=== PATIENT | male | born 1935 | race Caucasian/White ===

== ENCOUNTER 2017-01-02 10:11 | Emergency (ER) | payer MEDICARE, OTHER ==
[2017-01-02 11:34] VITALS: BP 147/65
--- NOTE | 2017-01-02 13:25 | UC ---
Skin Complaint HPI - HPI Summary HPI Summary: PT WITH H/O LIFE LONG RECURRENT BLISTERY RASH IS CURRENTLY HAVING OUTBREAK ON HI LOW BACK AND BUTTUCK ON LEFT. 2 DAYS AGO, HE NOTED PAINFUL LUMP, DIFFERENT FROM HIS USUAL PROBLEM. DENIES F/C/CONFUSION/FALLS/UNSTEADY GAIT. - History of Current Complaint Chief Complaint: UCSkin Time Seen by Provider: 01/02/17 12:53 Stated Complaint: SKIN COMPLAINT Hx Obtained From: Patient, Family/Transportation Aide Onset/Duration: Gradual Onset, Lasting Days - 2, Still Present, Worse Since - TODAY Timing: Constant Onset Severity: Mild Current Severity: Moderate Pain Intensity: 5 Location: Discrete - LET BUTTUCK Character: Swelling, Pain, Redness Aggravating: Nothing Alleviating: Nothing Associated Signs & Symptoms: Positive: Rash - USUAL RECURRENT RASH, Tenderness. Negative: Nausea, Vomiting, Diaphoresis, Weakness, Shivering, Difficulty Breathing, Fever, Chills, Cough, Wheezing, Chest Pain, Throat Tightening, Abdominal Pain, Lightheadedness, Drainage - Allergy/Home Medications Allergies/Adverse Reactions: Allergies Allergy/AdvReac Type Severity Reaction Status Date / Time Iodinated Diagnostic Agents Allergy Difficulty Unverified 10/03/16 14:28 Breathing Lactose Intolerance (GI) Allergy Nausea And Verified 10/03/16 14:28 Vomiting Home Medications: Home Medications Amoxicillin/Clavulanate TAB* [Augmentin TAB 875*] 875 mg PO BID 01/02/17 [ History Confirmed 01/02/17] Apixaban* [Eliquis*] 5 mg PO BID 01/02/17 [History Confirmed 01/02/17] Review of Systems Constitutional: Negative Skin: Rash, Other - BOIL ON LEFT BUTTUCKS Eyes: Negative ENT: Negative Respiratory: Negative Cardiovascular: Negative Gastrointestinal: Negative Genitourinary: Negative Motor: Negative Neurovascular: Negative Musculoskeletal: Negative Neurological: Negative Psychological: Negative All Other Systems Reviewed And Are Negative: Yes PMH/Surg Hx/FS Hx/Imm Hx Endocrine History Of: Reports: Diabetes - TYPE II-ON ORAL MEDICATION FOR Denies: Thyroid Disease Cardiovascular History Of: Reports: Cardiac Disorders - A-fib, Hypertension - ON MEDICATION FOR, Myocardial Infarction Denies: Pacemaker/ICD Respiratory History Of: Reports: Bronchitis Denies: COPD, Asthma GI/ History Of: Reports: Kidney Stones - LEFT STONE 2-8-16 Denies: Ulcer, Renal Disease Neurological History Of: Reports: TIA Psychological History Of: Reports: Anxiety - IN THE PAST, Depression - IN THE PAST - Surgical History Surgical History: Yes Surgery Procedure, Year, and Place: LSP FUSION SURGERY 1988 AND 1989, [facility] [place], AND [place]; b/l cataracts, left patella surgery. x4 vessel cardiac BYPASS SURGERY-2002, [facility]. RIGHT CAROTID ARTERY Endarterectomy-2012, [place]; back surgeries, fxs and surgeries on left leg;. PROSTATECTOMY- [facility] [place], 1993. VEIN REPLACED-(PLASTIC TUBING) IN BOTH LEGS, 2004 AND [place] 2006 AND 2008. CARDIAC STENT to LAD-2012, [facility]. CATARACTS BILATERAL- [place], 2012. 2014-LEFT RENAL CALCULUS- STENT PLACEMENT, [facility] [place]. DILITATION FOR ESPHAGEAL STRICTURE X2, [facility] [place] - Family History Known Family History: Positive: Cardiac Disease, Hypertension, Diabetes Family History: Both parents with [place] - Social History Occupation: Retired Lives: With Family Alcohol Use: Occasionally Substance Use Type: None Smoking Status (MU): Former Smoker Type: Cigarettes Amount Used/How Often: UP TO 3 PPD X 50 YEARS Length of Time of Smoking/Using Tobacco: 50 years Have You Smoked in the Last Year: No When Did the Patient Quit Smoking/Using Tobacco: 2000 - Immunization History Most Recent Influenza Vaccination: Fall 2014 Most Recent Tetanus Shot: ? Most Recent Pneumonia Vaccination: Follow-up with Dr Desir Physical Exam Triage Information Reviewed: Yes Appearance: Well-Appearing, No Pain Distress, Well-Nourished Vital Signs: Initial Vital Signs Temp 98.3 F 01/02/17 11:27 Pulse 77 01/02/17 11:27 Resp 16 01/02/17 11:27 BP 147/65 01/02/17 11:27 Pulse Ox 98 01/02/17 11:27 Vital Signs Reviewed: Yes Eyes: Positive: Conjunctiva Clear. Negative: Discharge ENT: Positive: Hearing grossly normal. Negative: Muffled/hoarse voice Neck exam: Normal Neck: Positive: Supple Respiratory: Positive: Lungs clear, Normal breath sounds, No respiratory distress, No accessory muscle use Cardiovascular: Negative: RRR - IRREGULARLY IRREGULAR Musculoskeletal Exam: Normal Neurological: Positive: Alert, Muscle Tone Normal Psychological: Positive: Age Appropriate Behavior Skin: Positive: rashes - IN DIAMETER.ERYTHEMATOUS MACPAP RASH, SOME WITH EXCORIATIONS ON LOW LEFT BACK AND BUTTUCKS. THERE IS ALSO A SMALL BOIL, ~1CM, A RED RAISED LUMP, INDURATED BUT NO FLUCTUALNCE. THERE IS AN SURROUNDING RED AREA THAT IS TENDER ABOUT 2.5 CM Course/Dx - Differential Diagnoses - Skin Complaint Differential Diagnoses: Abscess, Contact Dermatitis, Urticaria - Diagnoses Provider Diagnoses: ABSCESS Discharge - Discharge Plan Condition: Stable Disposition: HOME Prescriptions: Sulfamethox/Trimethoprim DS* [Bactrim DS 800/160 TAB*] 1 tab PO BID #20 tab Patient Education Materials: Abscess (ED), Sulfamethoxazole/Trimethoprim (By mouth) Referrals: Rui Lo MD [Primary Care Provider] - 2 Days (FOLLOW UP IN 2 DAYS FOR A RE-CHECK. THIS FOLLOW UP VISIT IS IMPORTANT. WE WANT TO KNOW THAT YOU ARE GETTING BETTER. IF YOU CAN NOT GET IN WITH YOUR PCP, YOU CAN RETURN HERE FOR RE-EVALUATION. FOLLOW UP SOONER IF REDNESS GOES BEYOND MARKED BOARDERS OR IF YOU DEVELOP ANY FEVERS, CHILLS, CONFUSION OR IF YOU BECOME UNSTEADY ON YOUR FEET.) Additional Instructions: ANYTIME YOU TAKE AN ANTIBIOTIC IT IS VERY IMPORTANT TO REPLENISH YOUR BODY'S SUPPLY OF "GOOD" BACTERIA. YOU CAN DO THIS BY EATING HIGH QUALITY CULTURED FOODS SUCH LOCAL YOGURT, SOUR KRAUT AND TAI RISHI. YOU CAN ALSO TAKE A PROBIOTIC SUPPLEMENT.
== END 2017-01-02 13:26 | disposition home or self-care (01) ==
LOC: UCCORT 10:11
DX: L02.31 Cutaneous abscess of buttock (principal); R21 Rash and other nonspecific skin eruption; E11.9 Type 2 diabetes mellitus without complications; I48.91 Unspecified atrial fibrillation; I10 Essential (primary) hypertension; I25.2 Old myocardial infarction; F41.9 Anxiety disorder, unspecified; I25.10 Atherosclerotic heart disease of native coronary artery without angina pectoris; Z86.73 Personal history of transient ischemic attack (TIA), and cerebral infarction without residual deficits; Z95.1 Presence of aortocoronary bypass graft; Z87.891 Personal history of nicotine dependence; Z91.011 Allergy to milk products; Z98.1 Arthrodesis status; Z91.041 Radiographic dye allergy status; Z79.82 Long term (current) use of aspirin
CPT/HCPCS: 99212; G0463

== ENCOUNTER 2017-01-06 09:06 | Emergency (ER) | payer MEDICARE, OTHER ==
[2017-01-06 10:14] VITALS: BP 117/74
--- NOTE | 2017-01-06 10:34 | UC ---
Skin Complaint HPI - HPI Summary HPI Summary: follow-up buttock abscesses. Seen here a few days ago, dx Staph abscesses, Rx Bactrim. Still quite painful. Hard to sit - History of Current Complaint Chief Complaint: UCSkin Time Seen by Provider: 01/06/17 10:22 Stated Complaint: RE-CHECK SKIN COMPLAINT Hx Obtained From: Patient, Family/Rental Representative - Onset/Duration: Gradual Onset, Lasting Days - 5 Timing: Constant Onset Severity: Mild Current Severity: Mild Location: Other - rogjt bittp Character: Swelling, Redness, Raised, Painful Aggravating: Touch Alleviating: Nothing Associated Signs & Symptoms: Positive: Tenderness - Allergy/Home Medications Allergies/Adverse Reactions: Allergies Allergy/AdvReac Type Severity Reaction Status Date / Time Iodinated Diagnostic Agents Allergy Difficulty Verified 01/06/17 10:14 Breathing Lactose Intolerance (GI) Allergy Nausea And Verified 01/06/17 10:14 Vomiting Review of Systems Constitutional: Negative Skin: Other - two abscesses right buttock Eyes: Negative ENT: Negative Respiratory: Negative Cardiovascular: Negative Gastrointestinal: Negative Genitourinary: Negative Motor: Negative Neurovascular: Negative Musculoskeletal: Negative Neurological: Negative Psychological: Negative All Other Systems Reviewed And Are Negative: Yes PMH/Surg Hx/FS Hx/Imm Hx Endocrine History Of: Reports: Diabetes - TYPE II-ON ORAL MEDICATION FOR Denies: Thyroid Disease Cardiovascular History Of: Reports: Cardiac Disorders - A-fib, Hypertension - ON MEDICATION FOR, Myocardial Infarction Denies: Pacemaker/ICD Respiratory History Of: Reports: Bronchitis Denies: COPD, Asthma GI/ History Of: Reports: Kidney Stones - LEFT STONE 01-08-16 Denies: Ulcer, Renal Disease Neurological History Of: Reports: TIA Psychological History Of: Reports: Anxiety - IN THE PAST, Depression - IN THE PAST - Surgical History Surgical History: Yes Surgery Procedure, Year, and Place: LSP FUSION SURGERY 1988 AND 1989, [facility] [place]; b/l cataracts, left patella surgery. x4 vessel cardiac BYPASS SURGERY-2002, [facility]. RIGHT CAROTID ARTERY Endarterectomy-2012, [place]; back surgeries, fxs and surgeries on left leg;. PROST[place]CTOMY- [facility] [place], [place]. VEIN REPLACED-(PLASTIC TUBING) IN BOTH LEGS, 2004 AND [place] 2006 AND 2008. CARDIAC STENT to LAD-2012, [facility]. CATARACTS BILATERAL- [place], 2012. 2014-LEFT RENAL CALCULUS- STENT PLACEMENT, [facility] [place]. DILITATION FOR ESPHAGEAL STRICTURE X2, [facility] - Family History Known Family History: Positive: Cardiac Disease, Hypertension, Diabetes Family History: Both parents with [place] - Social History Alcohol Use: Occasionally Substance Use Type: None Smoking Status (MU): Former Smoker Type: Cigarettes Amount Used/How Often: UP TO 3 PPD X 50 YEARS Length of Time of Smoking/Using Tobacco: 50 years Have You Smoked in the Last Year: No When Did the Patient Quit Smoking/Using Tobacco: 2000 - Immunization History Most Recent Influenza Vaccination: Fall 2014 Most Recent Tetanus Shot: ? Most Recent Pneumonia Vaccination: Follow-up with Dr Deisr Physical Exam Triage Information Reviewed: Yes Appearance: Well-Appearing, No Pain Distress, Well-Nourished Vital Signs: Initial Vital Signs Temp 97.9 F 01/06/17 10:11 Pulse 107 01/06/17 10:11 Resp 18 01/06/17 10:11 BP 117/74 01/06/17 10:11 Pulse Ox 99 01/06/17 10:11 Vital Signs Reviewed: Yes Eye Exam: Normal Neck exam: Normal Respiratory Exam: Normal Cardiovascular Exam: Normal Musculoskeletal Exam: Normal Neurological Exam: Normal Psychological Exam: Normal Skin Exam: Other - two small abscesses on right buttock. One is dime-sized, one quarter-sized. The redness surrounding the larger one is DECREASED based on the purple emmonak drawn during prior visit. No drainage Course/Dx - Diagnoses Provider Diagnoses: abscesses Discharge - Discharge Plan Condition: Stable Disposition: HOME Patient Education Materials: Abscess Follow-up (ED) Referrals: Rui Lo MD [Primary Care Provider] - Additional Instructions: Continue on the antibiotic. Put warm compresses on the sore spots. The redness is less, they are resolving.
== END 2017-01-06 10:34 | disposition home or self-care (01) ==
LOC: UCCORT 09:06
DX: L02.31 Cutaneous abscess of buttock (principal); I10 Essential (primary) hypertension; E11.9 Type 2 diabetes mellitus without complications; Z95.1 Presence of aortocoronary bypass graft; Z87.891 Personal history of nicotine dependence; Z98.42 Cataract extraction status, left eye; Z98.41 Cataract extraction status, right eye; Z91.041 Radiographic dye allergy status
CPT/HCPCS: 99212; G0463

== ENCOUNTER 2017-01-28 14:12 | Observation (INO) | payer MEDICARE, OTHER ==
[2017-01-28] MEDS ORDERED: Nitroglycerin TAB 0.4 MG* 0.4 MG TAB SL PRN (15:19)
[2017-01-28] MEDS ORDERED: Acetaminophen TAB* 325 MG PO PRN (15:23)
[2017-01-28] MEDS ORDERED: Fluticasone NASAL SPRAY 50MCG* 16 gm SPRAY BTL BOTH NARES PRN (15:25)
[2017-01-28] MEDS ORDERED: NS 0.9% 1000 ML* 1,000 ML IV SCH (15:30)
[2017-01-28] MEDS: Clopidogrel TAB* 75 MG PO SCH (15:43)
[2017-01-28 16:30] LABS: HDL Cholesterol 33.3 mg/dL
[2017-01-28] MEDS ORDERED: Famotidine TAB* 20 MG PO SCH (21:00)
[2017-01-29 04:11] LABS: Hematocrit 40 % (42-52); Hemoglobin 13.7 g/dl (14.0-18.0); Mean Corpuscular HGB Conc 34 g/dl (31-36); Mean Corpuscular Hemoglobin 31 pg (27-31); Mean Corpuscular Volume 92 fL (80-94); Mean Platelet Volume 8 um3 (7.4-10.4); Red Blood Count 4.39 10^6/ul (4.0-5.4); Red Cell Distribution Width 13 % (10.5-15); White Blood Count 10.9 10^3/ul (3.5-10.8)
[2017-01-29 04:21] LABS: BUN/Creatinine Ratio 22.3 (8-20); Calcium 8.5 mg/dL (8.6-10.3); EGFR African American 99.3 (>60); EGFR Non-African American 77.2 (>60); Potassium 4.3 mmol/L (3.5-5.0)
[2017-01-29] MEDS ORDERED: Aspirin Low Dose CHEW TAB* 81 MG PO SCH ×2 (09:00)
[2017-01-29] MEDS: Clopidogrel TAB* 75 MG PO SCH (10:15)
[2017-01-29 11:31] VITALS: BP 159/92
--- NOTE | 2017-01-30 02:58 | DS ---
DISCHARGE SUMMARY: DATE OF ADMISSION: 01/28/17 DATE OF DISCHARGE: 01/29/17 PRIMARY CARE PHYSICIAN: Dr. Lo. MARGARINE MAKER: Dr. Marquez. DISCHARGE DIAGNOSES: 1. Unstable angina. 2. Previous coronary artery bypass grafting. 3. Chronic atrial fibrillation. 4. LV systolic dysfunction. 5. Chronic hyperlipidemia. 6. Peripheral arterial disease, status post bilateral fem-pop bypass. 7. CONTRAST allergy. PROCEDURES: Cardiac cath. Stent placement; saphenous vein graft, circumflex, RPL utilizing 4.0 x 12 Synergy drug-eluting stent postdilated to 4.5 mm FFR evaluation mid vein graft, negative. DISCHARGE MEDICATIONS: Unchanged except for addition of: 1. Plavix 75 mg daily. 2. MiraLax. 3. Ondansetron 8 mg daily. 4. Fish oil. 5. Vitamin C. 6. Simethicone. 7. . 8. Lactase. 9. Flonase nasal spray. 10. Pepcid 20 mg daily. 11. Vitamin D. 12. Claritin. 13. Glyburide 1.25 mg daily based on blood sugars. 14. Pravachol 20 mg daily. 15. Toprol XL 50 b.i.d. 16. Losartan 50 mg daily. 17. Norvasc 5 mg daily. 18. Aspirin 81 mg daily. 19. Eliquis 5 mg b.i.d. 20. Nitro 0.4 sublingual p.r.n. 21. Plavix 75 daily. WOUND CARE: Shower only for 2 days. ACTIVITY: No heavy lifting for 2 days. FOLLOWUP: As scheduled with Dr. Marquez next week in medical office building for wound check. HISTORY: See the office H and P. LABORATORY DATA: Post-PCI CBC is stable, as is chemistry panel with blood sugar of 233, sodium 131. Creatinine normal at 0.94. Cholesterol on Pravachol 20, total 158, triglycerides 54, LDL 114, HDL 33.3. It is unknown to me whether he is able to tolerate higher dose Pravachol or not. He can discuss that with Dr. Marquez in the office. HOSPITAL COURSE: He underwent outpatient catheterization for evaluation of unstable angina with rest pain manifest as burning precordial discomfort radiating into the left arm, promptly relieved with sublingual nitroglycerin, even though he had a recent negative stress imaging study that showed LV dysfunction without ischemia. He has had previous bilateral fem-pop bypass with the anastomosis beyond the common femoral. By history, in 2011, intervention with stent placement in the LAD via the [place] was attempted via the left arm but was apparently unsuccessful and was completed through the groin. Hence groin access was utilized. Cath demonstrated occlusion of the tling[place] RCA with the mid RCA segment including PDA filling by left to right collaterals, the RPL is separate from the distal RCA, is perfused by the vein graft which supplies the marginal and RPL. That graft had a high grade proximal 90% stenosis that was successfully stented as above using a filter wire without complications. He has not had any post-stent issues including with the groin, has not had chest pain, shortness of breath. He is being discharged on aspirin and Plavix as well as his NOAC. He will follow with Dr. Marquez next week as scheduled. CC: Dr. Lo; Dr. Marquez * [id number]/CPS #: [id number] MTDD
== END 2017-01-29 11:15 | disposition home or self-care (01) ==
LOC: ICU 14:43 → INTOOBSV 14:43
PROVIDERS: ADMIT Internal Medicine Cardiovascular Disease; ATTEND Internal Medicine Cardiovascular Disease
DX: I20.0 Unstable angina (principal); Z95.1 Presence of aortocoronary bypass graft; I48.2 Chronic atrial fibrillation; Z79.01 Long term (current) use of anticoagulants; I51.9 Heart disease, unspecified; I73.9 Peripheral vascular disease, unspecified; Z91.041 Radiographic dye allergy status; Z79.82 Long term (current) use of aspirin; I25.10 Atherosclerotic heart disease of native coronary artery without angina pectoris; I70.0 Atherosclerosis of aorta; I70.203 Unspecified atherosclerosis of native arteries of extremities, bilateral legs; I25.5 Ischemic cardiomyopathy
CPT/HCPCS: 36415; 80048; 80061; 82550; 85025; 87641; 93005; A9270-GY; G0378

== ENCOUNTER 2017-02-25 11:17 | Emergency (ER) | payer MEDICARE, OTHER ==
[2017-02-25 11:47] VITALS: BP 95/62
[2017-02-25] MEDS ORDERED: Lidocaine 1% MPF wEPI 200,000* 30 ML SDV ONE (12:17)
--- NOTE | 2017-02-25 12:51 | UC ---
Skin Complaint HPI - HPI Summary HPI Summary: patient has developed an abcess on the left side of his posterior hair line. noticed it two days ago. - History of Current Complaint Chief Complaint: UCSkin Time Seen by Provider: 02/25/17 12:00 Stated Complaint: SKIN/NECK COMPLAINT Hx Obtained From: Patient Onset/Duration: Sudden Onset, Lasting Days Skin Exposure Onset/Duration: Days Ago Timing: Constant Onset Severity: Moderate Current Severity: Severe Location: Discrete Aggravating: Nothing Alleviating: Nothing Associated Signs & Symptoms: Positive: Negative - Allergy/Home Medications Allergies/Adverse Reactions: Allergies Allergy/AdvReac Type Severity Reaction Status Date / Time Atorvastatin Allergy Difficulty Verified 02/25/17 11:48 Breathing CI Pigment Blue 63 Allergy Unknown Verified 02/25/17 11:48 [From Toviaz] Reaction Details Fesoterodine [From Toviaz] Allergy Unknown Verified 02/25/17 11:48 Reaction Details Iodinated Diagnostic Agents Allergy Difficulty Verified 02/25/17 11:48 Breathing Lactose Intolerance (GI) Allergy Nausea And Verified 02/25/17 11:48 Vomiting Lecithin [From Toviaz] Allergy Unknown Verified 02/25/17 11:48 Reaction Details Simvastatin [From Zocor] Allergy Unknown Verified 02/25/17 11:48 Reaction Details Home Medications: Home Medications Acetaminophen TAB* [Tylenol TAB*] 975 mg PO Q4H PRN 02/25/17 [History Confirmed 02/25/17] Review of Systems Constitutional: Negative Skin: Other - abscess Eyes: Negative ENT: Negative Respiratory: Negative Cardiovascular: Negative Gastrointestinal: Negative Genitourinary: Negative Motor: Negative Neurovascular: Negative Musculoskeletal: Negative Neurological: Negative Psychological: Negative All Other Systems Reviewed And Are Negative: Yes PMH/Surg Hx/FS Hx/Imm Hx Previously Healthy: Yes Endocrine History Of: Reports: Diabetes - TYPE II-ON ORAL MEDICATION FOR Denies: Thyroid Disease Cardiovascular History Of: Reports: Cardiac Disorders - [place] x2 cardiac stents, Hypertension - ON MEDICATION FOR, Myocardial Infarction Denies: Pacemaker/ICD Respiratory History Of: Reports: COPD, Bronchitis, Pneumonia Denies: Asthma GI/ History Of: Reports: Kidney Stones - LEFT STONE 01-08-16 Denies: Ulcer, Renal Disease Neurological History Of: Reports: TIA, CVA - 2002 Psychological History Of: Reports: Anxiety - IN THE PAST, Depression - IN THE PAST - Surgical History Surgical History: Yes Surgery Procedure, Year, and Place: LSP FUSION SURGERY 1988 AND 1989, [facility] [place]; b/l cataracts, left patella surgery. x4 vessel cardiac BYPASS SURGERY-2002, [facility]. RIGHT CAROTID ARTERY Endarterectomy-2012, [place]; back surgeries, fxs and surgeries on left leg;. PROSTATECTOMY- [facility] [place], [place]. VEIN REPLACED-(PLASTIC TUBING) IN BOTH LEGS, 2004 AND [place] 2006 AND 2008. CARDIAC STENT to LAD-2012, [facility]. CATARACTS BILATERAL- [place], 2012. 2014-LEFT RENAL CALCULUS- STENT PLACEMENT, [facility] [place]. DILITATION FOR ESPHAGEAL STRICTURE X2, [facility] [place] - Family History Known Family History: Positive: Cardiac Disease, Hypertension, Diabetes Family History: Both parents with [place] - Social History Alcohol Use: Rare Substance Use Type: None Smoking Status (MU): Former Smoker Type: Cigarettes Amount Used/How Often: UP TO 3 PPD X 50 YEARS Length of Time of Smoking/Using Tobacco: 50 years Have You Smoked in the Last Year: No When Did the Patient Quit Smoking/Using Tobacco: 2000 - Immunization History Most Recent Influenza Vaccination: Fall 2015 Most Recent Tetanus Shot: ? Most Recent Pneumonia Vaccination: Follow-up with Dr Desir Physical Exam Triage Information Reviewed: Yes Appearance: Well-Appearing, Well-Nourished, Pain Distress Vital Signs: Initial Vital Signs Temp 98.2 F 02/25/17 11:36 Pulse 62 02/25/17 11:36 Resp 14 02/25/17 11:36 BP 95/62 02/25/17 11:36 Pulse Ox 97 02/25/17 11:36 Vital Signs Reviewed: Yes Eye Exam: Normal Eyes: Positive: Conjunctiva Clear ENT Exam: Normal ENT: Positive: Hearing grossly normal, Pharynx normal, TMs normal Dental Exam: Normal Neck exam: Normal Neck: Positive: Supple, Tenderness @ - left posterior skin, induration noted which extends to left side of neck Respiratory Exam: Normal Respiratory: Positive: Chest non-tender, Lungs clear, Normal breath sounds Cardiovascular Exam: Normal Cardiovascular: Positive: RRR, No Murmur, Pulses Normal Abdominal Exam: Normal Abdomen Description: Positive: Nontender, No Organomegaly, Soft Bowel Sounds: Positive: Present Musculoskeletal Exam: Normal Neurological Exam: Normal Psychological Exam: Normal Skin Exam: Normal Course/Dx - Course Course Of Treatment: hx obtained, exam performed, meds reviewed, I and D performed to release drainage. dressing applied - Differential Diagnoses - Skin Complaint Differential Diagnoses: Abscess, Cellulitis, Contact Dermatitis, MRSA, Urticaria - Diagnoses Provider Diagnoses: abscess. neck pain Discharge - Discharge Plan Condition: Stable Disposition: HOME Prescriptions: Sulfamethox/Trimethoprim DS* [Bactrim DS 800/160 TAB*] 1 tab PO BID #14 tab Patient Education Materials: Abscess Incision and Drainage (ED) Referrals: Rui Lo MD [Primary Care Provider] - Additional Instructions: Take the antibiotic as directed, Notify your surgeon of the wound and treatment. Follow up with any increase in pain, swelling, odor of fever.
== END 2017-02-25 13:18 | disposition home or self-care (01) ==
LOC: UCCORT 11:17
DX: L02.11 Cutaneous abscess of neck (principal); E11.9 Type 2 diabetes mellitus without complications; Z79.84 Long term (current) use of oral hypoglycemic drugs; Z86.73 Personal history of transient ischemic attack (TIA), and cerebral infarction without residual deficits; I25.2 Old myocardial infarction; I10 Essential (primary) hypertension; Z87.891 Personal history of nicotine dependence; Z95.5 Presence of coronary angioplasty implant and graft; Z98.42 Cataract extraction status, left eye; Z98.41 Cataract extraction status, right eye
CPT/HCPCS: 10060; 87070; 87077; 87186; 87205; 87640; 87641; 99212; G0463; J2001

== ENCOUNTER 2017-05-21 10:39 | Emergency (ER) | payer MEDICARE, OTHER ==
[2017-05-21 11:12] VITALS: BP 130/62
[2017-05-21] MEDS ORDERED: cefTRIAXone VIAL(*) 1,000 MG VIAL IM ONE (11:35)
[2017-05-21] MEDS ORDERED: Tetan/Diph/Pertus SYR(Tdap)* 0.5 ML SYR(BOOSTRIX) use SYR IM ONE (11:36)
[2017-05-21] MEDS ORDERED: Lidocaine 1% MPF* 2 ML VIAL ONE (11:40)
--- NOTE | 2017-05-21 11:41 | UC ---
Skin Complaint HPI - HPI Summary HPI Summary: A fan fell and scrapped joann shins about 7 days ago and now he is having some redness to the wounds. No hx of mrsa. He is a well controlled diabetic with sugars in the low 100s. - History of Current Complaint Chief Complaint: UCLowerExtremity Time Seen by Provider: 05/21/17 11:04 Stated Complaint: LEFT LEG COMPLAINT Hx Obtained From: Patient, Family/Fabric Worker Supervisor Onset/Duration: Gradual Onset Skin Exposure Onset/Duration: Days Ago Timing: Constant Onset Severity: Mild Current Severity: Moderate Location: Discrete - Allergy/Home Medications Allergies/Adverse Reactions: Allergies Allergy/AdvReac Type Severity Reaction Status Date / Time Atorvastatin Allergy Difficulty Verified 05/21/17 10:53 Breathing CI Pigment Blue 63 Allergy Unknown Verified 05/21/17 10:53 [From Toviaz] Reaction Details Fesoterodine [From Toviaz] Allergy Unknown Verified 05/21/17 10:53 Reaction Details Iodinated Diagnostic Agents Allergy Difficulty Verified 05/21/17 10:53 Breathing Lactose Intolerance (GI) Allergy Nausea And Verified 05/21/17 10:53 Vomiting Lecithin [From Toviaz] Allergy Unknown Verified 05/21/17 10:53 Reaction Details Simvastatin [From Zocor] Allergy Unknown Verified 05/21/17 10:53 Reaction Details Home Medications: Home Medications Losartan/HCTZ 100/25 (NF) [Hyzaar 100/25 (NF)] 1 tab PO DAILY 05/21/17 [History Confirmed 05/21/17] Review of Systems Constitutional: Negative All Other Systems Reviewed And Are Negative: Yes PMH/Surg Hx/FS Hx/Imm Hx Endocrine History: Diabetes - Surgical History Surgical History: Yes Surgery Procedure, Year, and Place: LSP FUSION SURGERY 1988 AND 1989, [facility] [place]; b/l cataracts, left patella surgery. x4 vessel cardiac BYPASS SURGERY-2002, [facility]. RIGHT CAROTID ARTERY Endarterectomy-2012, [place]; back surgeries, fxs and surgeries on left leg;. PR[place]OMY- [facility] [place], [place]. VEIN REPLACED-(PLASTIC TUBING) IN BOTH LEGS, 2004 AND [place] 2006 AND 2008. CARDIAC STENT to LAD-2012, [facility]. CATARACTS BILATERAL- [place], 2012. 2014-LEFT RENAL CALCULUS- STENT PLACEMENT, [facility] [place]. DILITATION FOR ESPHAGEAL STRICTURE X2, [facility] [place]. CARDIAC STENT JAN 2017 - Family History Known Family History: Positive: Cardiac Disease, Hypertension, Diabetes Family History: Both parents with [place] - Social History Alcohol Use: Rare Substance Use Type: None Smoking Status (MU): Former Smoker Type: Cigarettes Amount Used/How Often: UP TO 3 PPD X 50 YEARS Length of Time of Smoking/Using Tobacco: 50 years Have You Smoked in the Last Year: No When Did the Patient Quit Smoking/Using Tobacco: 2000 - Immunization History Most Recent Influenza Vaccination: Fall 2015 Most Recent Tetanus Shot: ? Most Recent Pneumonia Vaccination: Follow-up with Dr Desir Physical Exam Triage Information Reviewed: Yes Appearance: Well-Appearing, No Pain Distress, Well-Nourished Vital Signs: Initial Vital Signs Temp 98.5 F 05/21/17 11:00 Pulse 81 05/21/17 11:00 Resp 16 05/21/17 11:00 BP 130/62 05/21/17 11:00 Pulse Ox 97 05/21/17 11:00 Vital Signs Reviewed: Yes ENT Exam: Normal Neck exam: Normal Respiratory Exam: Normal Cardiovascular Exam: Normal Abdominal Exam: Normal Musculoskeletal Exam: Normal Neurological Exam: Normal Psychological Exam: Normal Skin Exam: Other - Joann shins small wounds with surrounding redness and induration. the redness is the size of a 1/2 dollar. no streaking or fluctuance or abcess. Both wounds are open and non draining. Course/Dx - Course Course Of Treatment: we had a long discussion with and patient regarding wound care and follow up. Epsom salt soaks, dressing changes and f/u in two days. he will return sooner should symptoms or wounds worsen. - Diagnoses Provider Diagnoses: cellulitis. Discharge - Discharge Plan Condition: Good Disposition: HOME Prescriptions: Dicloxacillin CAP* [Dynapen CAP*] 500 mg PO QID #40 cap Patient Education Materials: Wound Infection (ED), Cellulitis (ED) Referrals: Rui Lo MD [Primary Care Provider] - 2 Days Additional Instructions: Warm epsom soaked washcloth soaks three times a day. antibiotic ointment, telpha dressing and shar wrap.
[2017-05-21] MEDS ORDERED: Lidocaine 1% MPF* 2 ML VIAL INJ ONE (11:47)
--- NOTE | 2017-05-22 16:49 | UC ---
Progress - Progress Note Progress Note: see nurses note keflex 500mg 4x day e prescribed recheck tomorrow
== END 2017-05-21 12:00 | disposition home or self-care (01) ==
LOC: UCCORT 10:39
DX: L03.116 Cellulitis of left lower limb (principal); L03.115 Cellulitis of right lower limb; Z23 Encounter for immunization; E11.9 Type 2 diabetes mellitus without complications; Z95.1 Presence of aortocoronary bypass graft; Z95.5 Presence of coronary angioplasty implant and graft; Z90.79 Acquired absence of other genital organ(s); Z98.42 Cataract extraction status, left eye; Z98.41 Cataract extraction status, right eye; Z87.891 Personal history of nicotine dependence
CPT/HCPCS: 90471; 90715; 96372; 99212; G0463; J0696

== ENCOUNTER 2017-05-23 10:32 | Emergency (ER) | payer MEDICARE, OTHER ==
[2017-05-23 10:52] VITALS: BP 122/65
--- NOTE | 2017-05-23 11:14 | UC ---
Skin Complaint HPI - HPI Summary HPI Summary: cellulitis left lower leg x 1 week , + redness, tender, swelling, was seen at the urgent care 2 days ago , was place on an antibiotics that could not tolerated , abx was changed to keflex yesterday no fever, no chills. - History of Current Complaint Chief Complaint: UCSkin Time Seen by Provider: 05/23/17 10:38 Stated Complaint: RECHECK LEG Onset/Duration: Gradual Onset, Lasting Days - 5, Still Present Timing: Constant Onset Severity: Moderate Current Severity: Moderate Location: Other - left lower leg Character: Swelling, Pain, Redness, Raised Aggravating: Touch Alleviating: Nothing Associated Signs & Symptoms: Positive: Tenderness. Negative: Fever, Chills, Cough, Wheezing, Chest Pain, Drainage - Allergy/Home Medications Allergies/Adverse Reactions: Allergies Allergy/AdvReac Type Severity Reaction Status Date / Time Atorvastatin Allergy Difficulty Verified 05/23/17 10:41 Breathing CI Pigment Blue 63 Allergy Unknown Verified 05/23/17 10:41 [From Toviaz] Reaction Details Fesoterodine [From Toviaz] Allergy Unknown Verified 05/23/17 10:41 Reaction Details Iodinated Diagnostic Agents Allergy Difficulty Verified 05/23/17 10:41 Breathing Lactose Intolerance (GI) Allergy Nausea And Verified 05/23/17 10:41 Vomiting Lecithin [From Toviaz] Allergy Unknown Verified 05/23/17 10:41 Reaction Details Simvastatin [From Zocor] Allergy Unknown Verified 05/23/17 10:41 Reaction Details Home Medications: Home Medications Cephalexin CAP* [Keflex CAP*] 500 mg PO QID 05/23/17 [History Confirmed 05/23/17 ] Dicloxacillin CAP* [Dynapen CAP*] 500 mg PO QID 05/23/17 [History Confirmed ] Review of Systems Constitutional: Negative Eyes: Negative ENT: Negative Respiratory: Negative All Other Systems Reviewed And Are Negative: Yes PMH/Surg Hx/FS Hx/Imm Hx Previously Healthy: Yes Cardiovascular History: Myocardial Infarction - Surgical History Surgical History: Yes Surgery Procedure, Year, and Place: [place]SP [place]USION SURG[place] 1988 [place] [facility] [place]; b/l cataracts, left patella surgery. x4 vessel cardiac BYPASS SURGERY-2003, [place]. RIGHT CAROTID ARTERY Endarterectomy-2012, [place]; back surgeries, fxs and surgeries on left leg;. [place] [facility] [place]IN REPLACED-(PLASTIC TUBING) IN BOTH LEGS, 2004 AND [place] 2006 AND 2008. CARDIAC STENT to LAD-2012, [facility]. CATARACTS BILATERAL- [place], 2012. 2014-LEFT RENAL CALCULUS- ST[place]AC[place] [facility] [place] FOR ESPHAGEAL STRICTURE [place] [facility] [place] CARDIAC STENT JAN 2017 - Family History Known Family History: Positive: Cardiac Disease, Hypertension, Diabetes Family History: Both parents with [place] - Social History Alcohol Use: Rare Substance Use Type: None Smoking Status (MU): Former Smoker Type: Cigarettes Amount Used/How Often: UP TO 3 PPD X 50 YEARS Length of Time of Smoking/Using Tobacco: 50 years Have You Smoked in the Last Year: No When Did the Patient Quit Smoking/Using Tobacco: 2000 - Immunization History Most Recent Influenza Vaccination: Fall 2015 Most Recent Tetanus Shot: ? Most Recent Pneumonia Vaccination: Follow-up with Dr Desir Physical Exam Triage Information Reviewed: Yes Appearance: Well-Appearing, No Pain Distress, Well-Nourished Vital Signs: Initial Vital Signs Temp 98.7 F 05/23/17 10:47 Pulse 79 05/23/17 10:47 Resp 18 05/23/17 10:47 BP 122/65 05/23/17 10:47 Pulse Ox 97 05/23/17 10:47 Vital Signs Reviewed: Yes Eyes: Positive: Conjunctiva Clear ENT: Positive: Normal ENT inspection, Hearing grossly normal, Pharynx normal Neck: Positive: Supple, Nontender Respiratory: Positive: Chest non-tender, Lungs clear, Normal breath sounds Cardiovascular: Positive: RRR, No Murmur, Pulses Normal Skin: Positive: Other - left lower leg : + erythema, tenderness, no discharge , cw cellulitis of the left lower leg Course/Dx - Diagnoses Provider Diagnoses: celluliti left lower leg Discharge - Discharge Plan Condition: Stable Disposition: HOME Patient Education Materials: Cellulitis (ED) Referrals: Rui Lo MD [Primary Care Provider] - 5 Days
== END 2017-05-23 11:15 | disposition home or self-care (01) ==
LOC: UCCORT 10:32
DX: L03.116 Cellulitis of left lower limb (principal); Z87.891 Personal history of nicotine dependence; Z95.5 Presence of coronary angioplasty implant and graft; I25.2 Old myocardial infarction
CPT/HCPCS: 99212; G0463

== ENCOUNTER 2017-06-30 16:59 | Emergency (ER) | payer MEDICARE, OTHER ==
[2017-06-30 17:42] VITALS: BP 130/64
[2017-06-30] MEDS ORDERED: Lidocaine 2% W/EPI 1:100,000* 20 ML MDV INJ ONE (18:04)
--- NOTE | 2017-06-30 18:16 | UC ---
Skin Complaint HPI - HPI Summary HPI Summary: 81 yo male with hx of MRSA infections presents with one week hx of progressively worsening right buttock abscess yesterday states he was febrile to 103 no n/v/d no cough has urinary incontinence chronically also with painful scalp lesion - History of Current Complaint Chief Complaint: UCSkin Stated Complaint: SKIN COMPLAINT Hx Obtained From: Patient Onset/Duration: Gradual Onset, Lasting Days Timing: Constant Onset Severity: Mild Current Severity: Moderate Pain Intensity: 4 Pain Scale Used: 0-10 Numeric Location: Other - right buttock Character: Swelling, Redness, Raised, Painful Aggravating: Touch Associated Signs & Symptoms: Positive: Fever, Tenderness - Allergy/Home Medications Allergies/Adverse Reactions: Allergies Allergy/AdvReac Type Severity Reaction Status Date / Time Atorvastatin Allergy Difficulty Verified 06/30/17 17:29 Breathing CI Pigment Blue 63 Allergy Unknown Verified 06/30/17 17:29 [From Toviaz] Reaction Details Fesoterodine [From Toviaz] Allergy Unknown Verified 06/30/17 17:29 Reaction Details Iodinated Diagnostic Agents Allergy Difficulty Verified 06/30/17 17:29 Breathing Lactose Intolerance (GI) Allergy Nausea And Verified 06/30/17 17:29 Vomiting Lecithin [From Toviaz] Allergy Unknown Verified 06/30/17 17:29 Reaction Details Simvastatin [From Zocor] Allergy Unknown Verified 06/30/17 17:29 Reaction Details Review of Systems Constitutional: Fever Skin: Negative Eyes: Negative ENT: Negative Respiratory: Negative Cardiovascular: Negative Gastrointestinal: Negative Genitourinary: Negative Motor: Negative Neurovascular: Negative Musculoskeletal: Negative Neurological: Negative Psychological: Negative All Other Systems Reviewed And Are Negative: Yes PMH/Surg Hx/FS Hx/Imm Hx Endocrine History: Diabetes Cardiovascular History: Cardiac Disease, Hypertension - Surgical History Surgical History: Yes Surgery Procedure, Year, and Place: [place]SP [place]USION SUR[place] [facility] [place]; b/l cataracts, left patella surgery. x4 vessel cardiac BYPASS SURGERY-2002, [place]. RIGHT CAROTID ARTERY Endarterectomy-2012, [place]; back surgeries, fxs and surgeries on left leg;. [place] [facility] [place] VEIN REPLACED-(PLASTIC TUBING) IN BOTH LEGS, 2004 AND [place] 2006 AND 2008. CARDIAC STENT to LAD-2012, [facility]. CATARACTS BILATERAL- [place], 2012. 2014-LEFT RENAL CALCULUS[place] [facility] [place]ILITATION FOR ESPHAGEAL STRICTURE X2, [facility] ,. CARDIAC STENT JAN 2017 - Family History Known Family History: Positive: Cardiac Disease, Hypertension, Diabetes Family History: Both parents with [place] - Social History Alcohol Use: Rare Substance Use Type: None Smoking Status (MU): Former Smoker Type: Cigarettes Amount Used/How Often: UP TO 3 PPD X 50 YEARS Length of Time of Smoking/Using Tobacco: 50 years Have You Smoked in the Last Year: No When Did the Patient Quit Smoking/Using Tobacco: 2000 - Immunization History Most Recent Influenza Vaccination: Fall 2015 Most Recent Tetanus Shot: ? Most Recent Pneumonia Vaccination: Follow-up with Dr Desir Physical Exam Triage Information Reviewed: Yes Appearance: Well-Appearing, No Pain Distress, Well-Nourished Vital Signs: Initial Vital Signs Temp 99.3 F 06/30/17 17:30 Pulse 75 06/30/17 17:30 Resp 16 06/30/17 17:30 BP 130/64 06/30/17 17:30 Pulse Ox 97 06/30/17 17:30 Eyes: Positive: Conjunctiva Clear ENT: Positive: Hearing grossly normal. Negative: Nasal congestion, Nasal drainage, Trismus, Muffled/hoarse voice Dental: Negative: Abscess @ Neck: Positive: Supple, Nontender, No Lymphadenopathy Respiratory: Positive: Lungs clear, Normal breath sounds, No respiratory distress, No accessory muscle use Cardiovascular: Positive: RRR, No Murmur Musculoskeletal: Positive: ROM Intact, No Edema Neurological: Positive: Alert Psychological: Positive: Normal Response To Family Skin Exam: Other - see image Course/Dx - Diagnoses Provider Diagnoses: ABSCESS RIGHT BUTTOCK WITH OVERLYING CELLULITIS. INCISION AND DRAINAGE OF ABSCESS Procedures - Procedure Summary Procedure Summary: PROCEDURE: INCISE AND DRAIN RIGHT BUTTOCK ABSCESS TIME OUT STERILE PREP ANESTH WITH 3 CC LIDOCAINE AND EPI INCISED WITH 11 BLADE PUS EXPRESSED CULTURE OBTAINED STERILE DRESSING APPLIED - Incision and Drainage Site: RIGHT BUTTOCK Anesthesia: Local, Lidocaine Instrument(s): Scalpel Packing: Other - NOT PACKED Discharge - Discharge Plan Condition: Stable Disposition: HOME Prescriptions: Mupirocin 2% OINT* [Bactroban 2 % Oint*] 1 applic TOPICAL TID #1 tube Sulfamethox/Trimethoprim DS* [Bactrim DS 800/160 TAB*] 1 - 2 tab PO BID #24 tab Patient Education Materials: Abscess (ED) Referrals: Rui Lo MD [Primary Care Provider] - Additional Instructions: warm soapy compressed 4x day recheck here in 48 hours recheck sooner for worsening symptoms Images Head: 1 - impetiginous lesion Front/Back of Body, Lg ([place]): 1 - abscess with overlying erthyema
[2017-06-30] MEDS ORDERED: Sulfamethox/Trimethoprim DS 800/160* TAB PO ONE (18:29)
== END 2017-06-30 18:51 | disposition home or self-care (01) ==
LOC: UCCORT 16:59
DX: L02.31 Cutaneous abscess of buttock (principal)
CPT/HCPCS: 10060; 87070; 87205; 87640; 87641; 99212; A9270-GY; G0463

== ENCOUNTER 2017-07-02 14:08 | Emergency (ER) | payer MEDICARE, OTHER ==
[2017-07-02 14:34] VITALS: BP 133/64
--- NOTE | 2017-07-02 14:47 | UC ---
Upper Extremity HPI - HPI Summary HPI Summary: 81 yo male seen here 06/30 for I&D of right buttock abscess feels markedly better decreased pain decreased swelling no fever - History of Current Complaint Chief Complaint: UCSkin Stated Complaint: RE-CHECK SKIN COMPLAINT Time Seen by Provider: 07/02/17 14:32 Hx Obtained From: Patient Onset/Duration: Gradual Onset, Lasting Days Severity Initially: Moderate Severity Currently: Mild Pain Intensity: 2 Pain Scale Used: 0-10 Numeric Character: Dull Alleviating Factor(s): Nothing Associated Signs And Symptoms: Positive: Other - all complaints resolving - Allergies/Home Medications Allergies/Adverse Reactions: Allergies Allergy/AdvReac Type Severity Reaction Status Date / Time Atorvastatin Allergy Difficulty Verified 07/02/17 14:19 Breathing CI Pigment Blue 63 Allergy Unknown Verified 07/02/17 14:19 [From Toviaz] Reaction Details Fesoterodine [From Toviaz] Allergy Unknown Verified 07/02/17 14:19 Reaction Details Iodinated Diagnostic Agents Allergy Difficulty Verified 07/02/17 14:19 Breathing Lactose Intolerance (GI) Allergy Nausea And Verified 07/02/17 14:19 Vomiting Lecithin [From Toviaz] Allergy Unknown Verified 07/02/17 14:19 Reaction Details Simvastatin [From Zocor] Allergy Unknown Verified 07/02/17 14:19 Reaction Details PMH/Surg Hx/FS Hx/Imm Hx Previously Healthy: Yes - Surgical History Surgical History: Yes Surgery Procedure, Year, and Place: LSP FUSION SURGERY 1988 AND 1989, [facility] [place]; b/l cataracts, left patella surgery. x4 vessel cardiac BYPASS SURGERY-2002, [place]. RIGHT CAROTID ARTERY Endarterectomy-2012, ; back surgeries, fxs and surgeries on left leg;. PROSTATECTOMY- [facility] [place], 1993. VEIN REPLACED-(PLASTIC TUBING) IN BOTH LEGS, 2004 AND [place] 2006 AND 2008. CARDIAC STENT to LAD-2012, [facility]. CATARACTS BILATERAL- [place], 2012. 2014-LEFT RENAL CALCULUS- STENT PLACEMENT, [facility] [place]. DILITATION FOR ESPHAGEAL STRICTURE X2, [facility] [place] ,. CARDIAC STENT JAN 2017 - Family History Known Family History: Positive: Cardiac Disease, Hypertension, Diabetes Family History: Both parents with [place] - Social History Alcohol Use: Rare Substance Use Type: None Smoking Status (MU): Former Smoker Type: Cigarettes Amount Used/How Often: UP TO 3 PPD X 50 YEARS Length of Time of Smoking/Using Tobacco: 50 years Have You Smoked in the Last Year: No When Did the Patient Quit Smoking/Using Tobacco: 2000 - Immunization History Most Recent Influenza Vaccination: Fall 2015 Most Recent Tetanus Shot: 06/30/17 Most Recent Pneumonia Vaccination: Follow-up with Dr Desir Review of Systems Constitutional: Negative Skin: Negative Eyes: Negative ENT: Negative Respiratory: Negative Cardiovascular: Negative Gastrointestinal: Negative Genitourinary: Negative Motor: Negative Neurovascular: Negative Musculoskeletal: Negative Neurological: Negative Psychological: Negative All Other Systems Reviewed And Are Negative: Yes Physical Exam Triage Information Reviewed: Yes Appearance: Well-Appearing, No Pain Distress, Well-Nourished Vital Signs: Initial Vital Signs Temp 98.2 F 07/02/17 14:23 Pulse 69 07/02/17 14:23 Resp 16 07/02/17 14:23 BP 133/64 07/02/17 14:23 Pulse Ox 95 07/02/17 14:23 Vital Signs Reviewed: Yes Eyes: Positive: Conjunctiva Clear ENT: Negative: Hearing grossly normal, Nasal congestion, Trismus, Muffled/ hoarse voice Neck: Positive: Supple, Nontender Respiratory: Positive: Lungs clear, Normal breath sounds, No respiratory distress Cardiovascular: Positive: RRR, No Murmur Skin: Positive: Other - overlying cellulitis resolved/induration decreased Upper Extremity Course/Dx - Differential Dx/Diagnosis Provider Diagnoses: recheck right buttock abscess Discharge - Discharge Plan Condition: Stable Disposition: HOME Patient Education Materials: Abscess (ED) Referrals: Rui Lo MD [Primary Care Provider] - 5 Days Additional Instructions: continue current treatment return if symptoms worsen see your MD next week you may return here if unable to get in to see your MD
== END 2017-07-02 14:56 | disposition home or self-care (01) ==
LOC: UCCORT 14:08
DX: L02.31 Cutaneous abscess of buttock (principal); Z95.1 Presence of aortocoronary bypass graft; Z95.5 Presence of coronary angioplasty implant and graft; Z90.79 Acquired absence of other genital organ(s); Z98.42 Cataract extraction status, left eye; Z98.41 Cataract extraction status, right eye; Z87.891 Personal history of nicotine dependence
CPT/HCPCS: 99212; G0463

== ENCOUNTER 2017-07-04 15:39 | Emergency (ER) | payer MEDICARE, OTHER ==
[2017-07-04 15:57] VITALS: BP 131/67
--- NOTE | 2017-07-04 16:19 | UC ---
HPI Wound/Suture Re-check - HPI Summary HPI Summary: Pt presents for wound recheck to abscess on right posterior, lateral aspect of thigh. Pt has been taking prescribed antibiotics as directed and changing dressing as directed. Pt denies fever or chills. Pt is concerned that the abscess continues to feel firm abut is not draining with increased redness around wound - History Of Current Complaint Hx Obtained From: Patient Onset/Duration: Gradual Onset, Lasting Days, Still Present Severity: Mild <Dannielle Zimmer NP - Last Filed: 07/04/17 16:20> <Julee Naidu - Last Filed: 07/04/17 16:27> - History Of Current Complaint Chief Complaint: UCSkin Stated Complaint: RECHECK ABSCESS Time Seen by Provider: 07/04/17 15:56 - Allergies/Home Medications Allergies/Adverse Reactions: Allergies Allergy/AdvReac Type Severity Reaction Status Date / Time Atorvastatin Allergy Difficulty Verified 07/04/17 15:51 Breathing CI Pigment Blue 63 Allergy Unknown Verified 07/04/17 15:51 [From Toviaz] Reaction Details Fesoterodine [From Toviaz] Allergy Unknown Verified 07/04/17 15:51 Reaction Details Iodinated Diagnostic Agents Allergy Difficulty Verified 07/04/17 15:51 Breathing Lactose Intolerance (GI) Allergy Nausea And Verified 07/04/17 15:51 Vomiting Lecithin [From Toviaz] Allergy Unknown Verified 07/04/17 15:51 Reaction Details Simvastatin [From Zocor] Allergy Unknown Verified 07/04/17 15:51 Reaction Details PMH/Surg Hx/FS Hx/Imm Hx Previously Healthy: No - see PMH Endocrine History: Diabetes, Dyslipidemia Cardiovascular History: Cardiac Disease, Hypertension - Surgical History Surgical History: Yes Surgery Procedure, Year, and Place: LSP FUSION SURGERY 1988 AND 1989, [facility] [place]; b/l cataracts, left patella surgery. x4 vessel cardiac BYPASS SURGERY-2002, [place]. RIGHT CAROTID ARTERY Endarterectomy-2012, [place]; back surgeries, fxs and surgeries on left leg;. PROSTATECTOMY- [facility] [place], [place]. VEIN REPLACED-(PLASTIC TUBING) IN BOTH LEGS, 2004 AND [place] 2006 AND 2008. CARDIAC STENT to LAD-2012, [facility]. CATARACTS BILATERAL- [place], 2012. 2014-LEFT RENAL CALCULUS- STENT PLACEMENT, [facility] [place]. DILITATION FOR ESPHAGEAL STRICTURE X2, [facility] ,. CARDIAC STENT JAN 2017 - Family History Known Family History: Positive: Cardiac Disease, Hypertension, Diabetes Family History: Both parents with [place] - Social History Occupation: Retired Lives: With Family Alcohol Use: Rare Substance Use Type: None Smoking Status (MU): Former Smoker Type: Cigarettes Amount Used/How Often: UP TO 3 PPD X 50 YEARS Length of Time of Smoking/Using Tobacco: 50 years Have You Smoked in the Last Year: No When Did the Patient Quit Smoking/Using Tobacco: 2000 - Immunization History Most Recent Influenza Vaccination: Fall 2015 Most Recent Tetanus Shot: 06/30/17 Most Recent Pneumonia Vaccination: Follow-up with Dr Desir <Dannielle Zimmer NP - Last Filed: 07/04/17 16:20> Review of Systems Constitutional: Negative Skin: Other - abscess, previously I & D Eyes: Negative ENT: Negative Respiratory: Negative Cardiovascular: Negative Gastrointestinal: Negative Genitourinary: Negative Motor: Negative Neurovascular: Negative Musculoskeletal: Other: - tenderness at wound site Neurological: Negative Psychological: Negative All Other Systems Reviewed And Are Negative: Yes <Dannielle Zimmer NP - Last Filed: 07/04/17 16:20> Physical Exam Triage Information Reviewed: Yes Appearance: Well-Appearing Vital Signs: Initial Vital Signs Temp 98.6 F 07/04/17 15:48 Pulse 82 07/04/17 15:48 Resp 14 07/04/17 15:48 BP 131/67 07/04/17 15:48 Pulse Ox 98 07/04/17 15:48 Vital Signs Reviewed: Yes Eye Exam: Normal ENT Exam: Normal Neck exam: Normal Respiratory Exam: Normal Cardiovascular Exam: Normal Musculoskeletal Exam: Normal Neurological Exam: Normal Psychological Exam: Normal Skin Exam: Other - 3.5 cm firm mass, right posterior upper thigh, with no drainage, macerated edges, <Dannielle Zimmer NP - Last Filed: 07/04/17 16:20> Vital Signs: Initial Vital Signs Temp 98.6 F 07/04/17 15:48 Pulse 82 07/04/17 15:48 Resp 14 07/04/17 15:48 BP 131/67 07/04/17 15:48 Pulse Ox 98 07/04/17 15:48 <Julee Naidu - Last Filed: 07/04/17 16:27> Course/Dx - Differential Dx - Laceration/Wound Differential Diagnoses: Abscess, Cellulitis Provider Diagnoses: abscess-healing. consideration for surgical consultation <Dannielle Zimmer NP - Last Filed: 07/04/17 16:20> Discharge <Dannielle Zimmer NP - Last Filed: 07/04/17 16:20> <Julee Naidu - Last Filed: 07/04/17 16:27> - Discharge Plan Condition: Stable Disposition: HOME Patient Education Materials: Abscess (ED), Abscess Follow-up (ED) Referrals: Rui Lo MD [Primary Care Provider] - Genny Grewal MD [Medical Doctor] - Additional Instructions: Please continue to take the antibiotics as prescribed, continue with wound care management or dressing changes and cleansing the wound every 12 hours or as needed if more frequently. Please follow up with your PCP or return to clinic as needed. We have provided a referral to a General Surgeon for surgical consult on your wound. Asthma HPI <Dannielle Zimmer NP - Last Filed: 07/04/17 16:20> - HPI Summary HPI Summary: Pt presents for wound recheck to abscess on right posterior, lateral aspect of thigh. Pt has been taking prescribed antibiotics as directed and changing dressing as directed. Pt denies fever or chills. Pt is concerned that the abscess continues to feel firm abut is not draining with increased redness around wound - History of Current Complaint Hx Obtained From: Patient Onset/Duration: Gradual Onset, Lasting Days, Still Present Initial Severity: Mild Pain Intensity: 6 Pain Scale Used: 0-10 Numeric <Julee Naidu - Last Filed: 07/04/17 16:27> - History of Current Complaint Chief Complaint: UCSkin Stated Complaint: RECHECK ABSCESS Time Seen by Provider: 07/04/17 15:56 - Allergy/Home Medications Allergies/Adverse Reactions: Allergies Allergy/AdvReac Type Severity Reaction Status Date / Time Atorvastatin Allergy Difficulty Verified 07/04/17 15:51 Breathing CI Pigment Blue 63 Allergy Unknown Verified 07/04/17 15:51 [From Toviaz] Reaction Details Fesoterodine [From Toviaz] Allergy Unknown Verified 07/04/17 15:51 Reaction Details Iodinated Diagnostic Agents Allergy Difficulty Verified 07/04/17 15:51 Breathing Lactose Intolerance (GI) Allergy Nausea And Verified 07/04/17 15:51 Vomiting Lecithin [From Toviaz] Allergy Unknown Verified 07/04/17 15:51 Reaction Details Simvastatin [From Zocor] Allergy Unknown Verified 07/04/17 15:51 Reaction Details Attestation Statement User Type: Provider - I was available for consult. This patient was seen by the ANGELINA. The patient was not presented to, seen by, or examined by me. -Andres <Julee Naidu - Last Filed: 07/04/17 16:27>
== END 2017-07-04 16:22 | disposition home or self-care (01) ==
LOC: UCCORT 15:39
DX: L02.415 Cutaneous abscess of right lower limb (principal); E11.9 Type 2 diabetes mellitus without complications; E78.5 Hyperlipidemia, unspecified; I10 Essential (primary) hypertension; Z95.1 Presence of aortocoronary bypass graft; Z95.5 Presence of coronary angioplasty implant and graft; Z90.79 Acquired absence of other genital organ(s); Z98.42 Cataract extraction status, left eye; Z98.41 Cataract extraction status, right eye; Z87.891 Personal history of nicotine dependence
CPT/HCPCS: 99211; G0463

== ENCOUNTER 2018-12-08 11:49 | Emergency (ER) | payer MEDICARE, OTHER ==
[2018-12-08 12:58] VITALS: BP 105/43
--- NOTE | 2018-12-08 13:50 | UC ---
Respiratory Complaint HPI - HPI Summary HPI Summary: Pt presents with c/o nasal congestion, productive cough, malaise, fever, sob X 1 week. - History of Current Complaint Chief Complaint: UCRespiratory Stated Complaint: SINUSES Time Seen by Provider: 12/08/18 13:00 Hx Obtained From: Patient Onset/Duration: Gradual Onset, Lasting Days, Still Present, Worse Since - onset Timing: Constant Severity Initially: Mild Severity Currently: Moderate Pain Intensity: 0 Character: Cough: Productive Aggravating Factors: Exertion, Deep Breaths, Recumbent Position Alleviating Factors: Nothing Associated Signs And Symptoms: Positive: Fever, Chills, URI, Nasal Congestion - Risk Factors Pulmonary Embolism Risk Factors: Negative Cardiac Risk Factors: Diabetes, Elevated Lipids, CAD Pseudomonas Risk Factors: Negative Tuberculosis Risk Factors: Negative - Allergies/Home Medications Allergies/Adverse Reactions: Allergies Allergy/AdvReac Type Severity Reaction Status Date / Time iodine Allergy Intermediate See Comment Verified 12/08/18 12:49 atorvastatin Allergy Mild GI Upset Verified 12/08/18 12:49 lactose Allergy Mild GI Upset Verified 12/08/18 12:49 fesoterodine [From Toviaz] Allergy Unknown Unknown Verified 12/08/18 12:49 Reaction Details simvastatin [From Zocor] Allergy Unknown Unknown Verified 12/08/18 12:49 Reaction Details Home Medications: Home Medications Albuterol HFA INHALER* [Ventolin HFA Inhaler*] 1 puff INH Q4H PRN 12/08/18 [ History Confirmed 12/08/18] Apixaban* [Eliquis*] 5 mg PO BID 12/08/18 [History Confirmed 12/08/18] Ascorbic Acid TAB* [Vitamin C TAB*] 500 mg PO BID 12/08/18 [History Confirmed 12/08/18] Aspirin 81 mg CHEW TAB* 81 mg PO DAILY 12/08/18 [History Confirmed 12/08/18] Clopidogrel TAB* [Plavix TAB*] 75 mg PO DAILY 12/08/18 [History Confirmed ] Famotidine TAB* [Pepcid 20 MG TAB*] 40 mg PO DAILY 12/08/18 [History Confirmed 12/08/18] L.acidoph,Paracasei, B.lactis [Probiotic] 1 each PO DAILY 12/08/18 [History Confirmed 12/08/18] Lactase [Lactaid] 3,000 unit PO SEE INSTRUCTIONS 12/08/18 [History Confirmed 07/19] Metoprolol Succinate XL TAB* [Toprol XL TAB*] 25 mg PO BID 12/08/18 [History Confirmed 12/08/18] Nitroglycerin TAB 0.4 MG* 0.4 mg SL . NEEDED PRN 12/08/18 [History Confirmed 12/08/18] Ondansetron TAB* [Zofran 4 MG Tab*] 8 mg PO Q6H PRN 12/08/18 [History Confirmed 12/08/18] Polyethylene Glycol 3350* [Miralax*] 17 gm PO DAILY 12/08/18 [History Confirmed 12/08/18] Rosuvastatin Calcium 20 mg PO DAILY 12/08/18 [History Confirmed 12/08/18] Sacubitril/Valsartan [Entresto 24 mg-26 mg Tablet] 1 each PO BID 12/08/18 [ History Confirmed 12/08/18] Torsemide TAB* [Demadex 20 MG*] 20 mg PO DAILY 12/08/18 [History Confirmed 12/08] glyBURIDE TAB* [Diabeta TAB*] 1.25 mg PO SEE INSTRUCTIONS 12/08/18 [History Confirmed 12/08/18] PMH/Surg Hx/FS Hx/Imm Hx Previously Healthy: Yes Endocrine History: Diabetes, Dyslipidemia Cardiovascular History: Cardiac Disease - Surgical History Surgical History: Yes Surgery Procedure, Year, and Place: LSP FUSION SURGERY 1988 AND 1989, [facility] [place]; b/l cataracts, left patella surgery. x4 vessel cardiac BYPASS SURGERY-2002, [facility]. RIGHT CAROTID ARTERY Endarterectomy-2012, ; back surgeries, fxs and surgeries on left leg;. PROSTATECTOMY- [facility] [place], [place]. VEIN REPLACED-(PLASTIC TUBING) IN BOTH LEGS, 2004 AND [place] 2006 AND 2008. CARDIAC STENT to LAD-2012, [facility]. CATARACTS BILATERAL- [place], 2012. 2014-LEFT RENAL CALCULUS- STENT PLACEMENT, [facility] [place]. DILITATION FOR ESPHAGEAL STRICTURE X2, [facility] [place]. CARDIAC STENT JAN 2017 - Family History Known Family History: Positive: Cardiac Disease, Hypertension, Diabetes Family History: Both parents with [place] - Social History Occupation: Retired Lives: With Family Alcohol Use: None Substance Use Type: None Smoking Status (MU): Former Smoker Type: Cigarettes Amount Used/How Often: UP TO 3 PPD X 50 YEARS Length of Time of Smoking/Using Tobacco: 50 years Have You Smoked in the Last Year: No When Did the Patient Quit Smoking/Using Tobacco: 2000 - Immunization History Most Recent Influenza Vaccination: Fall 2015 Most Recent Tetanus Shot: 06/30/17 Most Recent Pneumonia Vaccination: Follow-up with Dr Desir Review of Systems All Other Systems Reviewed And Are Negative: Yes Constitutional: Positive: Fever, Chills, Fatigue Skin: Positive: Negative Eyes: Positive: Negative ENT: Positive: Sinus Congestion Respiratory: Positive: Cough Cardiovascular: Positive: Negative Gastrointestinal: Positive: Negative Genitourinary: Positive: Negative Motor: Positive: Negative Neurovascular: Positive: Negative Musculoskeletal: Positive: Negative Neurological: Positive: Negative Psychological: Positive: Negative Is Patient Immunocompromised?: No Physical Exam Triage Information Reviewed: Yes Appearance: Ill-Appearing Vital Signs: Initial Vital Signs Temp 98.6 F 12/08/18 12:49 Pulse 87 12/08/18 12:49 Resp 20 12/08/18 12:49 BP 105/43 12/08/18 12:49 Pulse Ox 97 12/08/18 12:49 Vital Signs Reviewed: Yes Eye Exam: Normal ENT: Positive: Nasal congestion Dental Exam: Normal Neck exam: Normal Respiratory: Positive: Decreased breath sounds Cardiovascular Exam: Normal Musculoskeletal Exam: Normal Neurological Exam: Normal Psychological Exam: Normal Skin Exam: Normal UC Diagnostic Evaluation - Laboratory O2 Sat by Pulse Oximetry: 97 Diagnostic Studies Comment: IMPRESSION: #. Stigmata of obstructive lung disease. No acute pulmonary process evident. #. Unchanged cardiomegaly. No evidence for pulmonary edema. - Radiology Radiology Interpretation Completed By: Radiologist Respiratory Course/Dx - Differential Dx/Diagnosis Differential Diagnosis/HQI/PQRI: Bronchitis, Influenza Provider Diagnosis: Pneumonia Discharge - Sign-Out/Discharge Documenting (check all that apply): Patient Departure All imaging exams completed and their final reports reviewed: Yes - Discharge Plan Condition: Stable Disposition: HOME Prescriptions: Amoxicillin PO (*) [Amoxicillin 875 MG (*)] 875 mg PO Q12H #20 tab Benzonatate CAP* [Tessalon 100 MG CAP*] 100 mg PO Q8H PRN #30 cap PRN Reason: Cough predniSONE TAB* [Deltasone 10 MG TAB*] 30 mg PO DAILY #12 tab Patient Education Materials: Pneumonia (ED) Referrals: Rui Lo MD [Primary Care Provider] - As Soon As Possible Additional Instructions: You have been given a prescription for prednisone. This medication may raise your blood glucose. Please monitor and follow up with your PCP as soon as possible. - Billing Disposition and Condition Condition: STABLE Disposition: Home
== END 2018-12-08 14:07 | disposition home or self-care (01) ==
LOC: UCCORT 11:49
DX: J18.9 Pneumonia, unspecified organism (principal); Z88.8 Allergy status to other drugs, medicaments and biological substances; E11.9 Type 2 diabetes mellitus without complications; E78.5 Hyperlipidemia, unspecified; Z79.84 Long term (current) use of oral hypoglycemic drugs; I51.9 Heart disease, unspecified; Z87.891 Personal history of nicotine dependence
CPT/HCPCS: 71046; 99212; G0463